=== PATIENT | female | born 1930 ===

== ENCOUNTER 2017-09-09 16:08 | Emergency (ER) | payer MEDICARE ==
[2017-09-09 16:19] VITALS: BMI 25.4
[2017-09-09] MEDS ORDERED: Sodium Chloride 0.9% 500 ML IV ONE ×2 (16:50→17:12)
[2017-09-09 17:07] LABS: BASO % 0.7 % (0.0-2.0); EOS % 0.9 % (0.0-4.0); HEMOGLOBIN 12.8 g/dL (11.0-16.0); LYMPH # 1.2 K/uL (1.0-4.3); LYMPH % 21.8 % (20.0-40.0); MEAN CELL VOLUME 89.7 fL (81.0-99.0); MEAN CORPUSCULAR HEMOGLOBIN 30.8 pg (27.0-31.0); MEAN CORPUSCULAR HGB CONC 34.3 g/dL (33.0-37.0); MONO # 0.5 K/uL (0.0-0.8); MONO % 9.4 % (0.0-10.0); NEUT # 3.7 K/uL (1.8-7.0); NEUT % 67.2 % (50.0-75.0); NRBC % 0.1 % (0.0-2.0); RBC 4.16 Mil/uL (3.80-5.20); RED CELL DISTRIBUTION WIDTH 13.8 % (11.5-14.5); WHITE BLOOD COUNT 5.5 K/uL (4.8-10.8)
[2017-09-09] MEDS ORDERED: Sodium Chloride 0.9% 0 ML ONE (17:11)
[2017-09-09 17:19] LABS: ALB/GLOB RATIO 0.9 (1.0-2.1); ALBUMIN 4.1 g/dL (3.5-5.0); ALT/SGPT 24 U/L (9-52); AST/SGOT 22 U/L (14-36); BLOOD UREA NITROGEN 26 mg/dL (7-17); CALCIUM 8.6 mg/dl (8.6-10.4); GFR AFRICAN-AMERICAN 57; GFR NON-AFRICAN AMERICAN 47
[2017-09-09 17:31] LABS: CK-MB 0.26 ng/mL (0.0-3.38)
--- NOTE | 2017-09-09 17:40 | CT ---
PROCEDURE: CT HEAD WITHOUT CONTRAST. HISTORY: R/O Bleed COMPARISON: None available. TECHNIQUE: Axial computed tomography images were obtained through the head/brain without intravenous contrast. Radiation dose: Total exam DLP = 685.56 mGy-cm. This CT exam was performed using one or more of the following dose reduction techniques: Automated exposure control, adjustment of the mA and/or kV according to patient size, and/or use of iterative reconstruction technique. FINDINGS: HEMORRHAGE: No intracranial hemorrhage. BRAIN: Diffuse atrophy with prominence of the ventricles and sulci noted. Intracranial atherosclerosis. No mass effect or edema. 3 mm and 4 mm left basal ganglia lacunar infarcts. Moderate scattered periventricular and subcortical white matter hypodensities, which are nonspecific, but often seen with chronic microvascular ischemic disease. VENTRICLES: No hydrocephalus. CALVARIUM: Unremarkable. PARANASAL SINUSES: Unremarkable as visualized. No significant inflammatory changes. MASTOID AIR CELLS: Unremarkable as visualized. No inflammatory changes. OTHER FINDINGS: None. IMPRESSION: Generalized atrophy. Moderate nonspecific white matter changes. 3 mm and 4 mm left basal ganglia lacunar infarcts. Please note that MRI with diffusion imaging is more sensitive in the detection of acute ischemic event.
--- NOTE | 2017-09-09 17:59 | C.PDOC ---
History Of Present Illness 86 year old female, with PMHx of HTN, and spasmodic dysphonia, presents to ED for evaluation of intermittent episodes of dizziness for the last 2 days. Dizziness is described as room-spinning sensation, and is worse when walking. Otherwise, denies change in medication, head trauma, visual changes, change in sensation, nausea, vomiting, chest pain, shortness of breath, or fever. Time Seen by Provider: 09/09/17 16:42 Chief Complaint (Nursing): Dizziness/Lightheaded History Per: Patient, Historic Preservationist (translated by son) History/Exam Limitations: no limitations Onset/Duration Of Symptoms: Days (2) Current Symptoms Are (Timing): Still Present Recent travel outside of the [place]: No Additional History Per: Patient Past Medical History Reviewed: Historical Data, Nursing Documentation, Vital Signs Vital Signs: Last Vital Signs Temp 97.6 F 09/09/17 18:44 Pulse 77 09/09/17 18:44 Resp 16 09/09/17 18:44 BP 166/68 H 09/09/17 18:44 Pulse Ox 97 09/09/17 18:44 - Medical History PMH: HTN, Hypercholesterolemia Surgical History: Cholecystectomy Family History: States: Unknown Family Hx - Social History Hx Alcohol Use: No Hx Substance Use: No - Immunization History Hx Tetanus Toxoid Vaccination: No Hx Influenza Vaccination: Yes Hx Pneumococcal Vaccination: No Review Of Systems Except As Marked, All Systems Reviewed And Found Negative. Constitutional: Negative for: Fever, Chills Eyes: Negative for: Vision Change Cardiovascular: Negative for: Chest Pain, Palpitations Respiratory: Negative for: Cough, Shortness of Breath Gastrointestinal: Negative for: Nausea, Vomiting Neurological: Positive for: Dizziness. Negative for: Weakness, Numbness, Headache Physical Exam - Physical Exam Appears: Non-toxic, No Acute Distress Skin: Normal Color, Warm, Dry Head: Atraumatic, Normacephalic Eye(s): bilateral: Normal Inspection Nose: Normal Oral Mucosa: Moist Neck: Normal ROM, Supple Chest: Symmetrical Cardiovascular: Rhythm Regular Respiratory: Normal Breath Sounds, No Rales, No Rhonchi, No Wheezing Gastrointestinal/Abdominal: Soft, No Tenderness Extremity: Normal ROM Neurological/Psych: Oriented x3, Normal Speech, No Other (no focal deficits) ED Course And Treatment - Laboratory Results Result Diagrams: 09/09/17 17:03 03/11/18 17:03 ECG: Interpreted By Me, Viewed By Me ECG Rhythm: Sinus Rhythm ECG Interpretation: Normal Rate From EC (bpm) O2 Sat by Pulse Oximetry: 98 (RA) Pulse Ox Interpretation: Normal - Other Rad Head CT X-Ray: Viewed By Me, Read By Radiologist Interpretation: PROCEDURE: CT HEAD WITHOUT CONTRAST. HISTORY: R/O Bleed. COMPARISON: None available. TECHNIQUE: Axial computed tomography images were obtained through the head/brain without intravenous contrast. Radiation dose: Total exam DLP = 685.56 mGy-cm. This CT exam was performed using one or more of the following dose reduction techniques: Automated exposure control, adjustment of the mA and/or kV according to patient size, and/or use of iterative reconstruction technique. FINDINGS: HEMORRHAGE: No intracranial hemorrhage. BRAIN: Diffuse atrophy with prominence of the ventricles and sulci noted. Intracranial atherosclerosis. No mass effect or edema. 3 mm and 4 mm left basal ganglia lacunar infarcts. Moderate scattered periventricular and subcortical white matter hypodensities, which are nonspecific, but often seen with chronic microvascular ischemic disease. VENTRICLES: No hydrocephalus. CALVARIUM: Unremarkable. PARANASAL SINUSES: Unremarkable as visualized. No significant inflammatory changes. MASTOID AIR CELLS: Unremarkable as visualized. No inflammatory changes. OTHER FINDINGS: None. IMPRESSION: Generalized atrophy. Moderate nonspecific white matter changes. 3 mm and 4 mm left basal ganglia lacunar infarcts. Please note that MRI with diffusion imaging is more sensitive in the detection of acute ischemic event. Progress Note: Blood work, UA, EKG, Head CT ordered and reviewed. Pt was given Meclizine and IV fluids. On re-evlauation, pt reports improvement of symptoms, no neurologic complaints. No headache, neurologic deficit, photophobia, rash, fever, or nuchal rigidity. Pt states she walked to the bathroom without symptoms. Pt is ambulating with steady gait. Pt was offered admission for further evaluation, pt refused noting she feels well . Son in law agrees pt is well to go home, pt lives with brother. AMA signed. Copies of labs and CT given to pt, instructed to follow up with PMD tomorrow or return to ER if symtpoms persist or worsen. Pt and son in law verbalize understanding. Case discussed with Dr Talley who evaluated work up and agreed upon plan and discharge. Disposition - Disposition Disposition: HOME/ ROUTINE Disposition Time: 18:37 Condition: STABLE Additional Instructions: Vaya a olivo mdico o la clnica en 2-5 carlton sin falta, para mas evaluacin. Deltana los medicamentos alize indicado. Volver a la mushtaq de emergencia en cualquier momento si los sntomas persisten o empeoran. Prescriptions: Meclizine [Meclizine*] 25 mg PO BID #20 tab Nitrofurantoin Macrocrystals [Macrobid] 1 cap PO BID #14 cap Instructions: Vertigo (a Type of Dizziness) (DC) Forms: [employer] ([place]), (AMA) Informed Refusal Print Language: CROATIAN - Clinical Impression Clinical Impression: Vertigo, UTI (urinary tract infection) - PA / PRIVATE WATCHMAN / Resident Statement MD/DO has reviewed & agrees with the documentation as recorded. - Scribe Statement The provider has reviewed the documentation as recorded by the Jluisibe Conrad Bush All medical record entries made by the Scribe were at my direction and personally dictated by me. I have reviewed the chart and agree that the record accurately reflects my personal performance of the history, physical exam, medical decision making, and the department course for this patient. I have also personally directed, reviewed, and agree with the discharge instructions and disposition.
[2017-09-09 18:13] LABS: SQUAMOUS EPITHIAL < 1 /hpf (0-5); URINE BACTERIA MANY (<OCC); URINE BILIRUBIN NEGATIVE (NEGATIVE); URINE BLOOD 2+ (NEGATIVE); URINE CLARITY Clear (Clear); URINE COLOR Straw (YELLOW); URINE GLUCOSE (UA) NORMAL (Normal); URINE LEUKOCYTE ESTERASE TRACE Leu/uL (Negative); URINE PROTEIN 1+ mg/dL (NEGATIVE); URINE UROBILINOGEN NORMAL mg/dL (0.2-1.0)
[2017-09-09 18:45] VITALS: BP 166/68; PULSE 77; RESP 16; TEMP 97.6
[2017-09-09 19:03] VITALS: O2SAT 98
--- NOTE | 2017-09-10 12:39 | CARD ---
APPROVED REPORT EKG Measurement Heart [id number] <Conclusion> Normal sinus rhythm Normal ECG
== END 2017-09-09 18:53 | disposition home or self-care (01) ==
LOC: C.ER 16:08
DX: N39.0 Urinary tract infection, site not specified (principal); R42 Dizziness and giddiness; E78.00 Pure hypercholesterolemia, unspecified; I10 Essential (primary) hypertension
CPT/HCPCS: 70450; 80053; 81001; 82550; 82553; 84484; 85025; 93005; 99285; J7040

== ENCOUNTER 2018-05-31 14:12 | Emergency (ER) | payer MEDICARE ==
[2018-05-31 14:25] VITALS: BMI 23.8
[2018-05-31 14:32] VITALS: O2SAT 98
[2018-05-31 15:18] LABS: BASO % 0.6 % (0.0-2.0); EOS # 0.1 K/uL (0.0-0.7); EOS % 1.1 % (0.0-4.0); HEMOGLOBIN 12.1 g/dL (11.0-16.0); LYMPH # 1.2 K/uL (1.0-4.3); LYMPH % 21.2 % (20.0-40.0); MEAN CELL VOLUME 90.6 fL (81.0-99.0); MEAN CORPUSCULAR HEMOGLOBIN 30.6 pg (27.0-31.0); MEAN CORPUSCULAR HGB CONC 33.8 g/dL (33.0-37.0); MEAN PLATELET VOLUME 8.6 fL (7.2-11.7); MONO # 0.5 K/uL (0.0-0.8); MONO % 9.3 % (0.0-10.0); NEUT # 3.8 K/uL (1.8-7.0); NEUT % 67.8 % (50.0-75.0); RBC 3.96 Mil/uL (3.80-5.20); RED CELL DISTRIBUTION WIDTH 13.2 % (11.5-14.5); WHITE BLOOD COUNT 5.5 K/uL (4.8-10.8)
[2018-05-31 15:22] LABS: SQUAMOUS EPITHIAL 1 /hpf (0-5); URINE BILIRUBIN NEGATIVE (NEGATIVE); URINE CLARITY Clear (Clear); URINE COLOR Straw (YELLOW); URINE GLUCOSE (UA) NORMAL (Normal); URINE LEUKOCYTE ESTERASE NEG Leu/uL (Negative); URINE PROTEIN 1+ mg/dL (NEGATIVE); URINE UROBILINOGEN NORMAL mg/dL (0.2-1.0)
[2018-05-31 15:23] LABS: URINE BLOOD 1+ (NEGATIVE)
[2018-05-31 15:31] LABS: ALB/GLOB RATIO 1.1 (1.0-2.1); ALBUMIN 4.7 g/dL (3.5-5.0); CALCIUM 10.1 mg/dl (8.6-10.4); URIC ACID 6.5 mg/dL (2.2-7.5)
--- NOTE | 2018-05-31 15:37 | RAD ---
Date of service: 05/31/2018 PROCEDURE: Left small finger radiographs. HISTORY: pain and swelling COMPARISON: None. TECHNIQUE: AP radiograph of the left hand, as well as spot oblique and lateral images of left small finger were obtained. FINDINGS: LEFT SMALL FINGER: Mildly displaced transverse fracture distal aspect of 5th proximal phalanx. Probable intra-articular extension. No other fracture. Remainder of the left hand (as seen on the AP view) is grossly unremarkable. JOINTS: Normal. SOFT TISSUES: Normal. OTHER FINDINGS: None. IMPRESSION: Mildly displaced fracture distal aspect 5th proximal phalanx.
--- NOTE | 2018-05-31 15:54 | C.PDOC ---
History Of Present Illness 87 year old female presents to the ED for evaluation of pain and swelling to her left pinky finger which began around two weeks ago. Patient states she was evaluated at an urgent care center, was diagnosed with cellulitis and prescribed Keflex. Patient states the pain and swelling has continued and she is unable to move the digit secondary to pain. She called the urgent care, and was told to come to the ED for further evaluation. Patient denies direct injury/trauma to the area, recent falls, extremity numbness/weakness, or changes in sensation. Time Seen by Provider: 05/31/18 14:30 Chief Complaint (Nursing): Finger,Hand,&Wrist History Per: Patient History/Exam Limitations: no limitations Onset/Duration Of Symptoms: Other (two weeks ) Current Symptoms Are (Timing): Still Present Quality: "Pain" Exacerbating Factor(s): Movement Additional History Per: Patient Past Medical History Reviewed: Historical Data, Nursing Documentation, Vital Signs Vital Signs: Last Vital Signs Temp 98.1 F 05/31/18 14:25 Pulse 88 05/31/18 14:25 Resp 16 05/31/18 14:25 BP 176/84 H 05/31/18 14:25 Pulse Ox 98 05/31/18 14:25 - Medical History PMH: HTN, Hypercholesterolemia Surgical History: Cholecystectomy Family History: States: Unknown Family Hx - Social History Hx Alcohol Use: No Hx Substance Use: No - Immunization History Hx Tetanus Toxoid Vaccination: No Hx Influenza Vaccination: Yes Hx Pneumococcal Vaccination: No Review Of Systems Skin: Positive for: Other (pain and swelling to left pinky finger ) Physical Exam - Physical Exam Appears: Non-toxic, No Acute Distress Skin: Warm, Dry, Ecchymosis (minimal, to PIP of left 5th digit ) Extremity: No Normal ROM (limited flexion of left 5th digit secondary to pain ), Tenderness (PIP of left 5th digit ), Capillary Refill (less than 2 seconds ), Swelling (PIP of left 5th digit ) Neurological/Psych: Oriented x3, Normal Speech, Normal Cognition, Normal Sensation ED Course And Treatment - Laboratory Results Result Diagrams: 05/31/18 15:11 05/31/18 15:11 O2 Sat by Pulse Oximetry: 98 (on RA) Pulse Ox Interpretation: Normal - Other Rad left hand XR X-Ray: Viewed By Me, Read By Radiologist Interpretation: Date of service: 05/31/2018. PROCEDURE: Left small finger radiographs. HISTORY: pain and swelling. COMPARISON: None. TECHNIQUE: AP radiograph of the left hand, as well as spot oblique and lateral images of left small finger were obtained. FINDINGS: LEFT SMALL FINGER: Mildly displaced transverse fracture distal aspect of 5th proximal phalanx. Probable intra- articular extension. No other fracture. Remainder of the left hand (as seen on the AP view) is grossly unremarkable. JOINTS: Normal. SOFT TISSUES: Normal. OTHER FINDINGS: None. IMPRESSION: Mildly displaced fracture distal aspect 5th proximal phalanx. Medical Decision Making Medical Decision Making: Impression: 87 year old female with pain to 5th digit of left hand Plan: * bloodwork * urinalysis * Left hand XR * Toradol IM * reassess and disposition Progress: Bloodwork and urinalysis with uric acid ordered, results are within normal limits. Left hand XR ordered, results indicate fracture. Finger splint was applied by ecologist technician and was checked by me. On reassessment, patient is resting comfortably, showing no signs of distress and is stable for discharge. Patient is advised to follow up referred orthopedist within 1-2 days for further evaluation. Disposition Counseled Patient/Family Regarding: Diagnosis, Need For Followup, Rx Given - Disposition Referrals: Cheikh Bruno III, MD [Staff Provider] - Disposition: HOME/ ROUTINE Disposition Time: 15:52 Condition: STABLE Additional Instructions: Your xray shows a fracture. It is very important you follow up with orthopedic within 1-4 days. A splint has been applied which is a temporary and must be worn for 4-8 weeks rusty analgsicos segn sea necesario Hernandez radiografa muestra deana fractura. Es muy importante que realice un seguimiento con ortopedia dentro de 1 a 4 carlton. Se cavazos aplicado deana frula que es temporal y se debe usar ginny 4-8 semanas. Instructions: Finger Fracture (DC) Forms: [employer] (Wolof) Print Language: AMERICAN - POA Present On Arrival: None - Clinical Impression Clinical Impression: Finger fracture - PA / RESEARCH ANTHROPOLOGIST / Resident Statement MD/DO has reviewed & agrees with the documentation as recorded. - Scribe Statement The provider has reviewed the documentation as recorded by the Scribe (Lynsey Bush) All medical record entries made by the Scribe were at my direction and personally dictated by me. I have reviewed the chart and agree that the record accurately reflects my personal performance of the history, physical exam, medical decision making, and the department course for this patient. I have also personally directed, reviewed, and agree with the discharge instructions and d isposition.
[2018-05-31 16:07] VITALS: BP 166/80; PULSE 76; RESP 18; TEMP 97.6
== END 2018-05-31 16:11 | disposition home or self-care (01) ==
LOC: C.ER 14:12
DX: S62.617D Displaced fracture of proximal phalanx of left little finger, subsequent encounter for fracture with routine healing (principal); X58.XXXD Exposure to other specified factors, subsequent encounter
CPT/HCPCS: 29130; 73140; 80053; 81001; 84550; 85025; 96374; 99285; J1885